=== PATIENT | female | born 1955 | race Caucasian/White ===

== ENCOUNTER 2018-06-20 09:45 | Observation (INO) ==
[2018-06-20] MEDS ORDERED: *HR* LORazepam 2 MG/ML VIAL IVP ONE (09:51)
[2018-06-20] MEDS ORDERED: levETIRAcetam 1,000 MG in 0.9 % Sodium Chloride 100 ML IVPB ONE (09:51)
[2018-06-20] MEDS ORDERED: Dexamethasone 4 MG/ML VIAL IVP ONE (09:51)
--- NOTE | 2018-06-20 09:58 | Emergency Department Note ---
Disposition Clinical Impression: Focal seizure, Status epilepticus, Glioblastoma Disposition: Admitted As Inpatient Condition: Serious General Adult HPI - General Stated complaint: Poss Seizure Time Seen by Provider: 06/20/18 09:48 - Related Data Home Medications Medication Instructions Recorded Confirmed Atenolol [Tenormin] 50 mg PO DAILY 08/03/17 06/01/18 levETIRAcetam [Roweepra] 1,500 mg PO BID 10/16/17 06/20/18 RX: Lisinopril [Zestril] 10 mg PO DAILY 02/04/18 06/01/18 Citalopram [CeleXA] 40 mg PO DAILY 04/12/18 06/01/18 Xarelto 20 mg PO DAILY 04/18/18 06/01/18 L. Acidophilus/Pectin, [place] 1 each PO TID 06/01/18 06/01/18 [Acidophilus Capsule] amLODIPine [Norvasc] 7.5 mg PO DAILY 06/01/18 06/01/18 Previous Rx's Medication Instructions Recorded Omeprazole [PriLOSEC] 20 mg PO BID #60 cap 10/16/17 Walker - Rollator [ROLLATOR] 1 each .ROUTE AD #1 each 12/21/17 RX: Handicap Placard 1 each .ROUTE AD #1 each 12/24/17 RX: Supplies [SUPPLIES] 1 each .ROUTE DAILY #1 each 03/19/18 Acetaminophen/Butalbital/Caffe 1 each PO DAILY PRN #10 tablet 05/27/18 [Fioricet] RX: Dexamethasone [Decadron] 4 mg PO DAILY #30 tab 06/07/18 ALPRAZolam [Xanax 0.5 MG Tablet] 0.5 mg PO TID PRN 30 Days #90 06/19/18 tablet Allergies Allergy/AdvReac Type Severity Reaction Status Date / Time adhesive tape Allergy Rash Verified 06/01/18 16:49 atorvastatin [From Lipitor] AdvReac Cramping Verified 06/01/18 16:49 of the Muscles Past Medical History - Past Medical History Medical history: Reports: cancer, DVT, GERD, hyperlipidemia, hypertension, seizures Psychiatric history: Reports: anxiety, depression - Social History Smoking Status: Never smoker Smokeless Tobacco Status: No Alcohol use: Reports: none Drug use: Reports: none Course Vital Signs Temperature 97.7 F 06/20/18 10:17 Pulse Rate 53 06/20/18 10:17 Respiratory Rate 16 06/20/18 10:17 Blood Pressure 110/85 06/20/18 10:17 O2 Sat by Pulse Oximetry 96 06/20/18 10:17 Temperature 98.5 F 06/20/18 16:51 Pulse Rate 66 06/20/18 16:51 Respiratory Rate 18 06/20/18 16:51 Blood Pressure 111/77 06/20/18 16:51 O2 Sat by Pulse Oximetry 92 06/20/18 16:51 Oxygen Delivery Oxygen Delivery Room Air Medical Decision Making - Lab Data Result diagrams: 06/20/18 12:42 06/20/18 12:42 Lab Results 06/20/18 06/20/18 Range/Units 12:42 12:42 WBC 5.2 (4.3-11.1) K/mcL RBC 4.27 (3.82-4.97) M/mcL Hgb 12.5 (11.5-15.4) g/dL Hct 38.2 (35.3-44.9) % MCV 89.5 (83.0-100.0) fL MCH 29.3 (28.0-33.3) pg MCHC 32.7 (31.6-35.5) g/dL RDW 15.8 H (11.5-14.5) % Plt Count 239 (140-400) K/mcL MPV 9.9 (9.4-12.4) fL Immature Gran % 0.8 (0-4) % Seg Neutrophils % 45.8 % Lymphocytes % 42.2 % Monocytes % 9.6 % Eosinophils % 1.0 % Basophils % 0.6 % Neutrophils # 2.4 (1.6-8.9) K/mcL Lymphocytes # 2.2 (0.6-4.6) K/mcL Monocytes # 0.5 (0.0-1.3) K/mcL Eosinophils # 0.1 (0.0-0.6) K/mcL Basophils # 0.0 (0.0-0.2) K/mcL Nucleated RBCs/100 WBC 0.6 H (0) /100 WBC Sodium 139 (136-145) mEq/L Potassium 3.8 (3.5-5.1) mEq/L Chloride 104 (98-107) mEq/L Carbon Dioxide 22 L (23-29) mEq/L BUN 15 (8-23) mg/dL Creatinine 0.74 (0.60-1.20) mg/dL Est GFR ( Amer) > 60 (> 60) Est GFR (Non-Af Amer) > 60 (> 60) BUN/Creatinine Ratio 20 (6-26) Glucose 116 H (70-105) mg/dL Calculated Osmolality 290 (280-300) Calcium 9.0 (8.6-10.3) mg/dL Magnesium 2.1 (1.6-2.6) mg/dL Total Bilirubin 0.4 (0.3-1.0) mg/dL AST 44 H (13-39) Units/L ALT 128 H (7-52) Units/L Alkaline Phosphatase 60 (34-104) Units/L Serum Total Protein 5.9 L (6.4-8.9) g/dL Albumin 3.6 (3.5-5.7) g/dL Globulin 2.3 L (2.4-3.5) g/dL Albumin/Globulin Ratio 1.6 (1.1-2.2) Critical Care Time Critical Care Time: Yes Total Critical Care Time: 30 Attestation: The high probability of a clinically significant, sudden or life threatening deterioration of the [] system(s) required my full and direct attention, intervention and personal management. The aggregate critical care time was [] minutes. This time is in addition to time spent performing reported procedures but includes the following: [] Data Review and interpretation [] Patient assessment and monitoring of vital signs [] Documentation [] Medication orders and management Attestation Statement - Attestation Attestation: I examined this patient and my medical decision-making was reviewed with the Resident Physician. I agree with the documented findings, disposition and treatment plan as described except to the extent set forth below. [id number] time provided Patient arrives by EMS from home. She is having an active partial seizure at the time of arrival. She has a known history of glioblastoma multi-forming and previous seizures. She takes Keppra.
--- NOTE | 2018-06-20 10:18 | Emergency Department Note ---
Disposition Clinical Impression: Focal seizure, Status epilepticus, Glioblastoma Disposition: Admitted As Inpatient Condition: Serious Time of Disposition: 14:43 General Adult HPI - General Stated complaint: Poss Seizure Time Seen by Provider: 06/20/18 09:48 Source: family, EMS Mode of arrival: EMS Limitations: altered mental status Nursing Notes Reviewed: Yes Vital Signs Reviewed: Yes - History of Present Illness HPI Narrative: 63 yo female with past medical history of brain cancer and seizures presents via EMS from home with the complaint of a possible seizure. The patient's checked on her this morning at 6 AM and the patient was at her baseline. When he went to give her her medications at 9 he noticed that she was in a postictal state. Her normal postictal state as right-sided weakness with slurred speech. The seizure was not witnessed. She has not received her morning medications for seizures. She has not been recently sick but she just started Lovenox for pulmonary embolism approximately 2 weeks ago. She sees physicians at [facility] for her cancer and neurology. at bedside confirms EMS story and cannot describe her typical seizures as he "has never actually seen one". - Related Data Home Medications Medication Instructions Recorded Confirmed Atenolol [Tenormin] 50 mg PO DAILY 08/03/17 06/01/18 levETIRAcetam [Roweepra] 1,500 mg PO BID 10/16/17 06/01/18 Lisinopril [Zestril] 10 mg PO DAILY 02/04/18 06/01/18 Citalopram [CeleXA] 40 mg PO DAILY 04/12/18 06/01/18 Xarelto 20 mg PO DAILY 04/18/18 06/01/18 L. Acidophilus/Pectin, [place] 1 each PO TID 06/01/18 06/01/18 [Acidophilus Capsule] amLODIPine [Norvasc] 7.5 mg PO DAILY 06/01/18 06/01/18 Previous Rx's Medication Instructions Recorded Omeprazole [PriLOSEC] 20 mg PO BID #60 cap 10/16/17 Walker - Rollator [ROLLATOR] 1 each .ROUTE AD #1 each 12/21/17 Handicap Placard 1 each .ROUTE AD #1 each 12/24/17 Supplies [SUPPLIES] 1 each .ROUTE DAILY #1 each 03/19/18 Acetaminophen/Butalbital/Caffe 1 each PO DAILY PRN #10 tablet 05/27/18 [Fioricet] Dexamethasone [Decadron] 4 mg PO DAILY #30 tab 06/07/18 ALPRAZolam [Xanax 0.5 MG Tablet] 0.5 mg PO TID PRN 30 Days #90 06/19/18 tablet Allergies Allergy/AdvReac Type Severity Reaction Status Date / Time adhesive tape Allergy Rash Verified 06/01/18 16:49 atorvastatin [From Lipitor] AdvReac Cramping Verified 06/01/18 16:49 of the Muscles Limitations: ROS unobtainable due to patients medical condition Past Medical History - Past Medical History Medical history: Reports: cancer, DVT, GERD, hyperlipidemia, hypertension, seizures Psychiatric history: Reports: anxiety, depression - Social History Smoking Status: Never smoker Smokeless Tobacco Status: No Alcohol use: Reports: none Drug use: Reports: none Physical Exam Upon arrival via EMS patient seen and have right-sided facial twitching. She is able to follow some commands, including squeezing her left hand raising her left arm and both legs. She is unable to squeeze her right hand or move her right arm. She cannot speak and what she mumbles is unintelligible. She follows peo ple around the room and can answer yes no questions by nodding. Aside from slurred speech and right arm, gross neurologic exam is intact. - General Limitations: altered mental status General appearance: alert - Head Head exam: atraumatic, normocephalic - Eye Eye exam: Present: normal appearance, PERRL, EOMI - ENT ENT exam: normal exam, mucous membranes moist - Neck Neck exam: Present: normal inspection. Absent: tenderness, lymphadenopathy - Chest Chest inspection: Present: normal inspection, symmetric chest wall rise. Absent: tenderness, rash - Respiratory Respiratory exam: Present: normal lung sounds bilaterally - Cardiovascular Cardiovascular exam: Present: regular rate, normal rhythm - Abdominal Exam Abdominal exam: Present: soft, Non-Tender. Absent: distention, guarding, rebound, rigidity - Extremities Exam Extremities exam: Present: normal inspection. Absent: tenderness, pedal edema - Neurological Exam Neurological exam: Present: alert, motor sensory deficit - Skin Skin exam: Present: warm, dry, intact Course Vital Signs Temperature 97.7 F 06/20/18 10:17 Pulse Rate 53 06/20/18 10:17 Respiratory Rate 16 06/20/18 10:17 Blood Pressure 110/85 06/20/18 10:17 O2 Sat by Pulse Oximetry 96 06/20/18 10:17 Temperature 97.7 F 06/20/18 10:17 Pulse Rate 55 06/20/18 11:53 Respiratory Rate 16 06/20/18 11:53 Blood Pressure 102/68 06/20/18 11:53 O2 Sat by Pulse Oximetry 94 06/20/18 11:53 Oxygen Delivery Oxygen Delivery Room Air Medical Decision Making - MDM Narrative Medical decision making narrative: This patient presents from home with postictal state and possible recurrence of focal seizures. She has not had her morning medications and appears to still be seizing but returning to baseline we will medicate her as though she is status epilepticus. 1 g Keppra, 1 mg Ativan, 10 mg Decadron has been ordered for the patient. We will also do a CT scan of her head as she has recently started Lovenox for pulmonary embolism to determine if she has any ischemic or hemorrhagic stroke like activity. 1145 - patient has still not gotten an IV line but continues to have focal facial seizures and has not returned to baseline. Nursing staff will attempt align one more time and if it cannot be obtained we will give the patient intramuscular Ativan to try to abort her seizures. Lab work has not been drawn yet. CT scan of the head just shows postsurgical changes without acute bleed or infarct. 1240 - patient line was obtained at noon. Her medications were administered and patient has stopped seizing at this point. Lab work is just now being drawn. 1440 - lab work returned normal. The patient for neurosurgery at was placed. Patient's states that he would rather not transfer her to [facility] she would prefer a palliative care consult. He does not want the patient to be told that she may be placed on hospice as he is afraid this would upset her. At this time he would prefer to not do aggressive treatments on the patient. The patient has not seized since medication administration earlier. She has been admitted to the hospital at this time. - Medical Records Medical records reviewed: Yes I reviewed the patient's medical records. - Lab Data Lab results reviewed: Yes I reviewed the patient's lab results. Result diagrams: 06/20/18 12:42 06/20/18 12:42 Lab Results 06/20/18 06/20/18 Range/Units 12:42 12:42 WBC 5.2 (4.3-11.1) K/mcL RBC 4.27 (3.82-4.97) M/mcL Hgb 12.5 (11.5-15.4) g/dL Hct 38.2 (35.3-44.9) % MCV 89.5 (83.0-100.0) fL MCH 29.3 (28.0-33.3) pg MCHC 32.7 (31.6-35.5) g/dL RDW 15.8 H (11.5-14.5) % Plt Count 239 (140-400) K/mcL MPV 9.9 (9.4-12.4) fL Immature Gran % 0.8 (0-4) % Seg Neutrophils % 45.8 % Lymphocytes % 42.2 % Monocytes % 9.6 % Eosinophils % 1.0 % Basophils % 0.6 % Neutrophils # 2.4 (1.6-8.9) K/mcL Lymphocytes # 2.2 (0.6-4.6) K/mcL Monocytes # 0.5 (0.0-1.3) K/mcL Eosinophils # 0.1 (0.0-0.6) K/mcL Basophils # 0.0 (0.0-0.2) K/mcL Nucleated RBCs/100 WBC 0.6 H (0) /100 WBC Sodium 139 (136-145) mEq/L Potassium 3.8 (3.5-5.1) mEq/L Chloride 104 (98-107) mEq/L Carbon Dioxide 22 L (23-29) mEq/L BUN 15 (8-23) mg/dL Creatinine 0.74 (0.60-1.20) mg/dL Est GFR ( Amer) > 60 (> 60) Est GFR (Non-Af Amer) > 60 (> 60) BUN/Creatinine Ratio 20 (6-26) Glucose 116 H (70-105) mg/dL Calculated Osmolality 290 (280-300) Calcium 9.0 (8.6-10.3) mg/dL Magnesium 2.1 (1.6-2.6) mg/dL Total Bilirubin 0.4 (0.3-1.0) mg/dL AST 44 H (13-39) Units/L ALT 128 H (7-52) Units/L Alkaline Phosphatase 60 (34-104) Units/L Serum Total Protein 5.9 L (6.4-8.9) g/dL Albumin 3.6 (3.5-5.7) g/dL Globulin 2.3 L (2.4-3.5) g/dL Albumin/Globulin Ratio 1.6 (1.1-2.2) - Radiology Data Radiology results reviewed: Yes I reviewed the patient's radiology results.
[2018-06-20 13:01] LABS: Basophils % 0.6 %; Eosinophils # 0.1 K/mcL (0.0-0.6); Hematocrit 38.2 % (35.3-44.9); Hemoglobin 12.5 g/dL (11.5-15.4); Immature Granulocytes % 0.8 % (0-4); Lymphocytes # 2.2 K/mcL (0.6-4.6); Lymphocytes % 42.2 %; Mean Corpuscular HGB Conc 32.7 g/dL (31.6-35.5); Mean Corpuscular Hemoglobin 29.3 pg (28.0-33.3); Mean Corpuscular Volume 89.5 fL (83.0-100.0); Mean Platelet Volume 9.9 fL (9.4-12.4); Monocytes # 0.5 K/mcL (0.0-1.3); Monocytes % 9.6 %; Neutrophils # 2.4 K/mcL (1.6-8.9); Nucleated Red Blood Cells 0.6 /100 WBC (0); Platelet Count 239 K/mcL (140-400); Red Blood Count 4.27 M/mcL (3.82-4.97); Red Cell Distribution Width 15.8 % (11.5-14.5); Segmented Neutrophils % 45.8 %
[2018-06-20 13:36] LABS: Alanine Aminotransferase 128 Units/L (7-52); Albumin 3.6 g/dL (3.5-5.7); Albumin/Globulin Ratio 1.6 (1.1-2.2); Alkaline Phosphatase 60 Units/L (34-104); Aspartate Amino Transferase 44 Units/L (13-39); BUN/Creatinine Ratio 20 (6-26); Bilirubin,Total 0.4 mg/dL (0.3-1.0); Blood Urea Nitrogen 15 mg/dL (8-23); Carbon Dioxide 22 mEq/L (23-29); Chloride 104 mEq/L (98-107); Globulin 2.3 g/dL (2.4-3.5); Glucose 116 mg/dL (70-105); Magnesium 2.1 mg/dL (1.6-2.6); Osmolality,Calculated 290 (280-300); Potassium 3.8 mEq/L (3.5-5.1); Sodium 139 mEq/L (136-145); Total Protein 5.9 g/dL (6.4-8.9); eGFR For Non-African Americans > 60 (> 60)
[2018-06-20] MEDS ORDERED: *HR* Morphine 2 MG/ML SYRINGE IVP ONE (15:24)
[2018-06-20] MEDS ORDERED: Acetaminophen/Butalbital/CaffeineTABLET PO PRN (15:29)
[2018-06-20] MEDS ORDERED: ALPRAZolam 0.5 MG TABLET PO PRN (15:29)
[2018-06-20] MEDS ORDERED: Ondansetron 4 MG/2 ML VIAL IVP PRN (15:34)
[2018-06-20] MEDS ORDERED: *HR* OxyCODONE Immed Rel 5 MG TABLET PO PRN (15:35)
[2018-06-20] MEDS ORDERED: tiZANidine 4 MG TABLET PO PRN (15:37)
--- NOTE | 2018-06-20 15:41 | Internal Med History&Physical ---
Date of Encounter: 06/20/18 Time of Encounter: 14:50 Internal Medicine - H&P: HPI Chief complaint: Seizures Admitted From: Emergency Dept History of present illness: Ms. 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 The patient's checked on her this morning at 6 AM and the patient was at her baseline. When he went to give her her medications at 9 he noticed that she was in a postictal state. Her normal postictal state as right-sided weakness with slurred speech. The seizure was not witnessed. She has not received her morning medications for seizures. She has not been recently sick but she just started Lovenox for pulmonary embolism approximately 2 weeks ago. She is not taking Xarelto anymore. She sees physicians at [facility] for her cancer and neurology. Currently patient is postictal. Her sts she takes a day to recover slowly. She is alert and c/o headache. Pt was givn a dose of 1000mg of Kepra, 1 mg of Ativan IV and Decadron 10 mg IV at the ER. Meds have been entered after reviewing list current list from [facility]. Past Med Surg Social Fam HX - Past Medical History Medical history: cancer, DVT, GERD, hyperlipidemia, hypertension, seizures Additional medical history: Brain CA, DVT RLL Psychiatric history: anxiety, depression - Past Surgical History Additional surgical history: brain tumor removal. aport - Social History Smoking Status: Never smoker Smokeless Tobacco Status: No Alcohol use: none Drug use: none - Family History Mother Living Status: Hx Family Cardiac Disorders: No Hx Family Respiratory Disorders: No Hx Family Cancer: Yes Hx Family GI Disorders: No Hx Family Endocrine Disorder: Yes (DM) Hx Family Neuromuscular Disorders: No Hx Family Neurologic Disorders: No Hx Family HEENT Disorders: No Hx Family Autoimmune Disorders: No Father Living Status: Still Living Hx Family Cardiac Disorders: No Hx Family Respiratory Disorders: No Hx Family Cancer: No Hx Family GI Disorders: No Hx Family Endocrine Disorder: No Hx Family Neuromuscular Disorders: No Hx Family Neurologic Disorders: No Hx Family HEENT Disorders: No Hx Family Autoimmune Disorders: No Daughter Age at : 31 Cause of : Brain Cancer Internal Medicine - H&P: Meds Atenolol [Tenormin] 50 mg PO DAILY 08/03/17 [History] Omeprazole [PriLOSEC] 20 mg PO BID #60 cap 10/16/17 [Rx] levETIRAcetam [Roweepra] 1,500 mg PO BID 10/16/17 [History] Walker - Rollator [ROLLATOR] 1 each .ROUTE AD #1 each 12/21/17 [Rx] Handicap Placard 1 each .ROUTE AD #1 each 12/24/17 [Rx] Lisinopril [Zestril] 10 mg PO DAILY 02/04/18 [History] Supplies [SUPPLIES] 1 each .ROUTE DAILY #1 each 03/19/18 [Rx] Citalopram [CeleXA] 40 mg PO DAILY 04/12/18 [History] Xarelto 20 mg PO DAILY 04/18/18 [History] Acetaminophen/Butalbital/Caffe [Fioricet] 1 each PO DAILY PRN #10 tablet 05/27/18 [Rx] L. Acidophilus/Pectin, [place] [Acidophilus Capsule] 1 each PO TID 06/01/18 [Hi story] amLODIPine [Norvasc] 7.5 mg PO DAILY 06/01/18 [History] Dexamethasone [Decadron] 4 mg PO DAILY #30 tab 06/07/18 [Rx] ALPRAZolam [Xanax 0.5 MG Tablet] 0.5 mg PO TID PRN 30 Days #90 tablet 06/19/18 [Rx] Allergy/AdvReac Type Severity Reaction Status Date / Time adhesive tape Allergy Rash Verified 06/01/18 16:49 atorvastatin [From Lipitor] AdvReac Cramping Verified 06/01/18 16:49 of the Muscles All Systems PM: A 10-system review of systems was performed and is negative for pertinent findings except as documented above in the HPI. - Constitutional Vitals: Temp Pulse Resp BP Pulse Ox 97.7 F 67 20 124/75 95 06/20/18 10:17 06/20/18 15:34 06/20/18 15:34 06/20/18 15:34 06/20/18 15:34 General appearance: Present: morbidly obese Exam: Patient is alert but confused given post ictal. Voice is feeble. C/O headache. - Head Head exam: Present: atraumatic, normocephalic - Eye Eye exam: Present: PERRL, conjuntiva pink, sclera anicteric Pupils: Present: PERRL - Neck Neck exam general surgery: Present: supple, trachea midline. Absent: lymphadenopathy - Respiratory Respiratory exam: Present: CTAB. Absent: accessory muscle use, rales, rhonchi, wheezes - Cardiovascular Cardiovascular exam: Present: RRR, +S1, +S2. Absent: diastolic murmur, gallop, rubs, systolic murmur - GI/Abdominal GI/Abdominal exam: Present: normal bowel sounds, soft, no peritoneal signs. Absent: distended, tenderness - Extremities Exam Extremities exam: Present: warm, radial pulses palpable and symmetrical. Absent: calf tenderness, cyanotic, pedal edema - Neurological Exam Neurological exam: Present: CN II-XII intact, speech deficit. Absent: pronater drift, facial droop Additional comments: Pattient is with week voice and cannot make out words as post ictal. The right upper extermity has 3 to 4/5 strenght which is residual from previous per . Pt was able to stand and walk with assistance to commode. - Skin Skin exam: Present: dry, intact Internal Med - H&P Results - Labs CBC & Chem 7: 06/20/18 12:42 06/20/18 12:42 Labs: Short CBC 06/20/18 Range/Units 12:42 WBC 5.2 (4.3-11.1) K/mcL Hgb 12.5 (11.5-15.4) g/dL Hct 38.2 (35.3-44.9) % Plt Count 239 (140-400) K/mcL Neutrophils # 2.4 (1.6-8.9) K/mcL BMP 06/20/18 12:42 Sodium 139 Potassium 3.8 Chloride 104 Carbon Dioxide 22 L BUN 15 Creatinine 0.74 Glucose 116 H Calcium 9.0 Liver Function 06/20/18 Range/Units 12:42 Total Bilirubin 0.4 (0.3-1.0) mg/dL AST 44 H (13-39) Units/L ALT 128 H (7-52) Units/L Alkaline Phosphatase 60 (34-104) Units/L Albumin 3.6 (3.5-5.7) g/dL - Impressions ITS Impressions Head CT 06/20/18 09:59 IMPRESSION: Sequela of prior surgery left temporal lobe with chronic changes in the left cerebral hemisphere unchanged from 2 months earlier. No acute intracranial abnormality seen. D/ / 06/20/2018 11:09:35 Michele Sam MD / Lashell Ernandez Interpreting Provider: Michele Sam MD - Assessment and plan (1) Focal seizure Current Visit: Yes Status: Acute Assessment and plan: This is likely from previous scarring from the Brain Cancer Surgery. Pt was presribed hydroxyzine for a rash. Dr. Huddleston Neurology was paged and consult requested. He has advised increasing the Keppra to 2000 mg BID and will see pt. Seizure precautions. Admit to Obs. (2) Glioblastoma Current Visit: Yes Status: Acute Assessment and plan: This is stable per CT. Disposition to Neuro oncology at [facility]. Pt is not in a condition for Palliative care discussion. Will wait till tomorrow to see if pt is imroved to the point where a Paaliative care consult may be obtained. (3) Hypertension Current Visit: No Status: Acute Assessment and plan: Continue Atenolol and Amlodipine. Cont lisinopril. Monitor BP. Qualifiers: Hypertension type: essential hypertension Qualified Code(s): I10 - Ess ential (primary) hypertension (4) Pulmonary embolism Current Visit: Yes Status: Acute Assessment and plan: Continue Lovenox. This also serves as DVT PPX. GI PPX with PPI. Qualifiers: Qualified Code(s): I26.99 - Other pulmonary embolism without acute cor pulmonale - Time Spent With Patient Total time spent is greater than 50% in coordination of care (as documented) at patient's floor/unit and/or counseling patient: Greater than 35 minutes
--- NOTE | 2018-06-20 16:28 | Neurology - Consult Note ---
<Berlin Gordon - Last Filed: 06/20/18 16:05> Date of Encounter: 06/20/18 Time of Encounter: 16:06 Assessment and Plan (1) Focal seizure Current Visit: Yes Status: Acute Neurology has been consulted due to focal seizure. Patient presents with altered mental status and what appears to be a postictal state S/P seizure. Per my exam she is lethargic and alert to self only and confused. She has right sided focal weakness and dysarthria. 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 She has a history of glioblastoma multiforme S/P resection 06/2017. Since 09/2017 she has had 4 seizures and is currently taking Keppra 1500 mg twice a day; she did not receive her a.m. dose today. She did receive 1000 mg IV dose in the ED. I suspect that scarring S/P resection is what has been causing her seizure activity. Plan: -EEG -Daily ASA 81 mg -Increase Keppra to 2000 mg twice a day -Request medical records from [facility] -Seizure precautions -Continuous telemetry - (2) Glioblastoma Current Visit: Yes Status: Acute Dx in 2017; s/p resection 06/2017. Has family hx with both Mother and Daughter. Follows with [facility] and follows with Dr. Vora Patient will continue f/u with [facility] (3) Family history of cancer Current Visit: No Status: Acute (4) Status epilepticus Current Visit: Yes Status: Acute History of Present Illness Chief complaint: seizures HPI: Ms. Soria is a 63-year-old female with a PMH of, HTN, HLD, seizures, recent DVT, PE and glioblastoma multiform S/P resection 06/2017. Since 09/2017 the patient has been having seizures. She presents to [facility] today with concern for seizures, as such Neurology has been consulted for further evaluation. Her husb and is at the bedside and reports that around 6 AM this morning the patient appeared to be at her baseline status. However, when he went back to check on her later in the morning at approximately around 9 AM he noticed that she was altered, lethargic and had right sided weakness, headache and slurred speech. She did not receive her seizure medications this morning. He does note that she has had multiple seizures with the same presentation in the past but never had any confirmed seizure activity on EEG. Also, she has had previous stroke workup at [facility] which was found to be negative. Per my assessment this evening she is lethargic but opens her eyes to voice and is able to participate in exam. She does have right-sided weakness and some mild dysarthria. She is alert but confused and appears to be postictal. She denies any visual changes, hearing loss, tinnitus, dysphagia, facial droop, chest pain or shortness of breath. CT of the head was completed in the ED and per my review I did not identify any acute abnormalities; sequelae of postsurgical left temporal lobe chronic changes. Past Med Surg Social Fam HX - Past Medical History Medical history: cancer, DVT, GERD, hyperlipidemia, hypertension, seizures Additional medical history: Brain CA, DVT RLL Psychiatric history: anxiety, depression - Past Surgical History Additional surgical history: brain tumor removal. aport - Social History Smoking Status: Never smoker Smokeless Tobacco Status: No Alcohol use: none Drug use: none - Family History Mother Living Status: Hx Family Cardiac Disorders: No Hx Family Respiratory Disorders: No Hx Family Cancer: Yes Hx Family GI Disorders: No Hx Family Endocrine Disorder: Yes (DM) Hx Family Neuromuscular Disorders: No Hx Family Neurologic Disorders: No Hx Family HEENT Disorders: No Hx Family Autoimmune Disorders: No Father Living Status: Still Living Hx Family Cardiac Disorders: No Hx Family Respiratory Disorders: No Hx Family Cancer: No Hx Family GI Disorders: No Hx Family Endocrine Disorder: No Hx Family Neuromuscular Disorders: No Hx Family Neurologic Disorders: No Hx Family HEENT Disorders: No Hx Family Autoimmune Disorders: No Daughter Age at : 31 Cause of : Brain Cancer Medications and Allergies Atenolol [Tenormin] 25 mg PO DAILY 08/03/17 [History] Omeprazole [PriLOSEC] 20 mg PO BID #60 cap 10/16/17 [Rx] levETIRAcetam [Roweepra] 1,500 mg PO BID 10/16/17 [History] Lisinopril [Zestril] 10 mg PO DAILY 02/04/18 [History] Citalopram [CeleXA] 20 mg PO DAILY 04/12/18 [History] L. Acidophilus/Pectin, [place] [Acidophilus Capsule] 1 each PO TID 06/01/18 [History] Dexamethasone [Decadron] 4 mg PO DAILY #30 tab 06/07/18 [Rx] ALPRAZolam [Xanax 0.5 MG Tablet] 0.5 mg PO TID PRN 30 Days #90 tablet 06/19/18 [Rx] Enoxaparin [Lovenox] 100 mg SQ Q12HR 06/20/18 [History] Methylphenidate HCl [Ritalin] 5 mg PO 0800,1200 06/20/18 [History] Ondansetron HCl 4 mg PO Q8H PRN 06/20/18 [History] Oxycodone HCl [Roxybond] 5 mg PO Q8H PRN 06/20/18 [History] Prochlorperazine Maleate [Compazine] 10 mg PO Q8HR PRN 06/20/18 [History] Tizanidine HCl [Zanaflex] 2 mg PO Q8H PRN 06/20/18 [History] hydrOXYzine HCl [Hydroxyzine HCl] 50 mg PO TID PRN 06/20/18 [History] Allergy/AdvReac Type Severity Reaction Status Date / Time adhesive tape Allergy Rash Verified 06/20/18 19:02 atorvastatin [From Lipitor] AdvReac Cramping Verified 06/20/18 19:02 of the Muscles All Systems: The remainder of the systems were reviewed and are negative Review of Systems: REVIEW OF SYSTEMS GENERAL: Negative for any nausea, vomiting, fevers, chills - - / + fatigue; reports sleeping 18-20 hours daily in the setting of glioblastoma multiform diagnosis NEUROLOGIC: Negative for any visual changes, facial asymmetry, dysarthria, hemisensory deficits, vertigo, ataxia, tongue biting or loss of bowel or bladder - - / + dysarthria, right sided hemiparesis, confusion, concern for seizures with history of prior seizures PSYCH: - agitation/irritability, anxiety HEENT: Negative for any head trauma, neck trauma, neck stiffness, photophobia, phonophobia, dysphagia CARDIAC: Negative for any chest pain, - -/ + Recent DVT and PE for which she is taking Lovenox weight-based twice a day injections GENITOURINARY: Negative for any dysuria, hematuria, incontinence or loss of bowel or bladder. MUSCULOSKELETAL: - Joint pain, stiffness / + right-sided weakness Physical Examination - Vital Signs Vital Signs: Initial Vital Signs Temp Pulse Resp BP Pulse Ox 97.7 F 53 16 110/85 96 06/20/18 10:17 06/20/18 10:17 06/20/18 10:17 06/20/18 10:17 06/20/18 10:17 - Exam Exam: Examination: General Examination: *CONSTITUTIONAL: Temp 90 7.7F, HR 67, RR 20 and 95% on room air, BP 124/75 *GENERAL APPEARANCE OF PATIENT ill-appearing obese female *EYES: pupils equal, round, reactive to light and accommodation, conjunctiva clear without masses or ulcerations *CARDIOVASCULAR RRR, S1, S2, no mumurs, rubs, or gallops, no peripheral edema, distal temperature normal, dorsalis pedis pulses normal. Musculoskeletal: *GAIT AND STATION lying on back in recumbent position; resting in bed S/P seizure, did not assess gait. *ASSESSMENT OF MUSCLE STRENGTH IN THE UPPER AND LOWER EXTREMITIES bilateral deltoid, bicep, tricep, piler strength, hip flexors ,anterior tibialis, dorsoflexion of the foot 3/5 *MUSCLE TONE IN THE UPPER AND LOWER EXTREMITIES normal. No abnormal movements, fasciculations or atrophy identified. Neurological: *ORIENTATION to person *RECURRENT AND REMOTE MEMORY intact *ATTENTION AND CONCENTRATION lethargic with postictal state S/P suspected seizure however able to follow basic commands *LANGUAGE FUNCTION no significant aphasia, was noted. + Dysarthria persi sts *FUND OF KNOWLEDGE aware of current events, past history, vocabulary *MENTAL altered attention span and concentration with suspected postictal state *CN II optic fundi were normal, no papilledema noted. *CN III,IV, PERRLA extraocular eye movements were full, no nystagmus and no ptosis noted. *CN V shows normal sensation and jaw opens symmetrically. *CN VII shows normal facial movement symmetrically, upper and lower bilaterally. *CN VIII shows no significant hearing loss on examination in the office. *CN IX,,X palate elevated symmetrically and normal gag reflex was noted. *CN XI normal strength in the sternocleidomastoid muscles, symmetrical shoulder shrugging. *CN XII tongue protruded in the midline, with normal strength and movement. *SENSORY EXAMINATION pinprick sensation intact, and light touch(vibration sense). *REFLEXES: deep tendon reflexes were normal and symmetrical , grade 1/4 diffusely, no pathological reflexes were noted. *CEREBELLAR TESTING heel/knee/champion *PAIN LEVEL 0/10 Results - Laboratory Findings CBC and BMP: 06/20/18 12:42 06/20/18 12:42 Abnormal lab findings: Abnormal lab results RDW 15.8 % (11.5-14.5) H 06/20/18 12:42 Nucleated RBCs/100 WBC 0.6 /100 WBC (0) H 06/20/18 12:42 Carbon Dioxide 22 mEq/L (23-29) L 06/20/18 12:42 Glucose 116 mg/dL (70-105) H 06/20/18 12:42 AST 44 Units/L (13-39) H 06/20/18 12:42 ALT 128 Units/L (7-52) H 06/20/18 12:42 Serum Total Protein 5.9 g/dL (6.4-8.9) L 06/20/18 12:42 Globulin 2.3 g/dL (2.4-3.5) L 06/20/18 12:42 - Diagnostic Findings EKG: report reviewed, image reviewed Additional findings: I have personally reviewed CT imaging of head and did not find any acute intracr anial abnormalities. There are chronic changes in the left cerebral hemisphere and postsurgical changes the left temporal lobe. Consult Discharge Plan - Plan Referrals: Jaime Corral MD [Primary Care Provider] - <Soraya Huddleston I - Last Filed: 06/21/18 10:02> Date of Encounter: 06/20/18 Assessment and Plan (1) Glioblastoma Current Visit: Yes Status: Acute (2) Family history of cancer Current Visit: No Status: Acute (3) Focal seizure Current Visit: Yes Status: Acute Pt was seen and examined, my medical decision was reviewed with emergency medical tech. I agree with the documented findings, disposition and treatment plan, as described except to the extent set forth below. Patient known to me from previous office visit with the GBM status post resection in June 2017, as well as chemotherapy and seizures admitted with breakthrough seizures had multiple seizures this morning. She has received extra dose of Keppra in the emergency room Now slightly postictal but coming back to her baseline With her seizures even previously she did get weakness of the right upper extr emity and some dysarthria which gradually subside within a day or so. She recently had DVT and PE for which she is on anticoagulation CT scan of the head did not show any acute new abnormality and particularly no evidence of any bleed. Suspect patient may be having Ancelmo paralysis, following these seizures to seems to be mixed simple/complex partial seizures. she seems to be alert awake and oriented no lethargic and drowsy but does not seems to be into status/ She did have an MRI of the brain 2 weeks ago at [facility] as a routine follow-up that did not show any evidence of new recurrence of tumor and she is scheduled to have another MRI in the next few weeks. As clinically she seems to be stable do not think that we need to do any MRI and now. She is already on anticoagulation and a baby aspirin and it would not change any management even if it is a stroke. Which I do not think is the case suspect it is more related to her seizures for her she is received extra dose of Keppra suggested to continue and increase the dose to 2000 mg twice a day. We will get an EEG to make sure there is no interictal abnormalities. We will follow the patient with you she should continue on seizure precautions Soraya Huddleston MD History of Present Illness HPI: Ms. Soria is a 63 year old female All Systems: The remainder of the systems were reviewed and are negative Physical Examination - Vital Signs Vital Signs: Initial Vital Signs Temp Pulse Resp BP Pulse Ox 97.7 F 53 16 110/85 96 06/20/18 10:17 06/20/18 10:17 06/20/18 10:17 06/20/18 10:17 06/20/18 10:17 Results - Laboratory Findings CBC and BMP: 06/21/18 05:17 06/21/18 05:17 Abnormal lab findings: Abnormal lab results RDW 15.5 % (11.5-14.5) H 06/21/18 05:17 Nucleated RBCs/100 WBC 0.8 /100 WBC (0) H 06/21/18 05:17 Glucose 106 mg/dL (70-105) H 06/21/18 05:17 AST 44 Units/L (13-39) H 06/20/18 12:42 ALT 128 Units/L (7-52) H 06/20/18 12:42 Serum Total Protein 5.9 g/dL (6.4-8.9) L 06/20/18 12:42 Globulin 2.3 g/dL (2.4-3.5) L 06/20/18 12:42
[2018-06-20] MEDS ORDERED: Gadolinium Contrast Agent (WT Based) IV PRN (16:39)
[2018-06-20] MEDS: *HR* Enoxaparin 100 MG/ML SYRINGE SQ SCH (19:44)
[2018-06-20] MEDS ORDERED: levETIRAcetam 250 MG TABLET PO SCH (21:00)
[2018-06-20] MEDS: Aspirin 81 MG TAB.CHEW PO SCH (21:07)
[2018-06-20] MEDS: Lactobacillus 1 EACH CAP.SPRINK PO SCH (21:07)
[2018-06-20] MEDS ORDERED: levETIRAcetam 250 MG TABLET PO STA (21:43)
[2018-06-21] MEDS: *HR* Enoxaparin 100 MG/ML SYRINGE SQ SCH (05:30)
[2018-06-21 05:33] LABS: Basophils % 0.3 %; Eosinophils % 0.2 %; Hematocrit 40.3 % (35.3-44.9); Immature Granulocytes % 1.1 % (0-4); Lymphocytes # 2.7 K/mcL (0.6-4.6); Lymphocytes % 41.4 %; Mean Corpuscular HGB Conc 32.3 g/dL (31.6-35.5); Mean Corpuscular Hemoglobin 29.2 pg (28.0-33.3); Mean Corpuscular Volume 90.6 fL (83.0-100.0); Mean Platelet Volume 10.1 fL (9.4-12.4); Monocytes # 0.5 K/mcL (0.0-1.3); Monocytes % 8.1 %; Neutrophils # 3.1 K/mcL (1.6-8.9); Nucleated Red Blood Cells 0.8 /100 WBC (0); Platelet Count 248 K/mcL (140-400); Red Blood Count 4.45 M/mcL (3.82-4.97); Red Cell Distribution Width 15.5 % (11.5-14.5); Segmented Neutrophils % 48.9 %
[2018-06-21 05:52] LABS: BUN/Creatinine Ratio 17 (6-26); Blood Urea Nitrogen 12 mg/dL (8-23); Calcium 8.8 mg/dL (8.6-10.3); Carbon Dioxide 24 mEq/L (23-29); Chloride 104 mEq/L (98-107); Glucose 106 mg/dL (70-105); Osmolality,Calculated 286 (280-300); Potassium 3.7 mEq/L (3.5-5.1); Sodium 138 mEq/L (136-145); eGFR For Non-African Americans > 60 (> 60)
[2018-06-21] MEDS ORDERED: Acetaminophen/Butalbital/CaffeineTABLET PO PRN (07:23)
[2018-06-21] MEDS: Methylphenidate HCl 5 MG TABLET PO SCH ×2 (08:32→11:31)
[2018-06-21] MEDS: Aspirin 81 MG TAB.CHEW PO SCH (08:33)
[2018-06-21] MEDS: Lactobacillus 1 EACH CAP.SPRINK PO SCH ×2 (08:33→16:13)
[2018-06-21] MEDS ORDERED: levETIRAcetam 250 MG TABLET PO SCH (09:00)
--- NOTE | 2018-06-21 09:14 | Neurology Progress Note ---
<Berlin Gordon J - Last Filed: 06/21/18 09:37> Date of Encounter: 06/21/18 Time of Encounter: 09:14 Assessment and Plan (1) Focal seizure Current Visit: Yes Status: Acute Neurology has been consulted due to focal seizure. Patient presented with altered mental status, right-sided weakness, dysarthria, and lethargy She has been having recurrent seizures since 09/2017. She presented yesterday with a postictal state and with Ancelmo's paralysis. Keppra dose has been increased to 2000 mg twice a day. I explained to her son and that she is having seizures due to scarring following the 07/01 tumor resection I strongly encourage follow-up with neuro/oncology [facility] Plan: -EEG - - pending -Daily ASA 81 mg -Request medical records from [facility] -Seizure precautions -Continuous telemetry - (2) Glioblastoma Current Visit: Yes Status: Acute (3) Family history of cancer Current Visit: No Status: Acute (4) Status epilepticus Current Visit: Yes Status: Acute Subjective Principal diagnosis: Focal seizures Interval history: Ms. Soria is a 63-year-old female with a PMH of, HTN, HLD, seizures, recent DVT, PE and glioblastoma multiform S/P resection 06/2017. She has been having recurrent focal seizures since 06/2017 resection. Neurology was consulted for evaluation of seizures. She presented yesterday to [facility] with seizures, slurred speech, right arm and leg weakness, confusion and lethargy. The patient was seen and examined at bedside today. There is no acute changes to the patient's condition overnight. Per my valuation this morning she appears to be more alert and is oriented 3. The right-sided weakness is improving she does not have any notable dysarthria. I discussed with the patient and her that seizures are most likely caused by scar tissue S/P resection of tumor. Furthermore, I discussed the increase in dose of Keppra and the need for close follow-up with her neuro/oncology team at [facility]. The patient and deny any further questions or concerns at this time. Objective - Constitutional Vitals: Temp Pulse Resp BP Pulse Ox 97.8 F 66 16 143/82 92 06/21/18 07:06 06/21/18 07:06 06/21/18 07:06 06/21/18 07:06 06/21/18 07:06 Exam: Examination: General Examination: *CONSTITUTIONAL: Temp 90 7.8F, HR 66, RR 16 and 92% on RA, BP 143/82 *GENERAL APPEARANCE OF PATIENT ill-appearing obese female *EYES: pupils equal, round, reactive to light and accommodation, conjunctiva clear without masses or ulcerations, fundi normal. *CARDIOVASCULAR RRR, S1, S2, no mumurs, rubs, or gallops, no peripheral edema, distal temperature normal, dorsalis pedis pulses normal. Musculoskeletal: *GAIT AND STATION no obvious truncal ataxia, resting in bed S/P seizure *ASSESSMENT OF MUSCLE STRENGTH IN THE UPPER AND LOWER EXTREMITIES bilateral deltoid, bicep, tricep, director of fundraising strength, hip flexors ,anterior tibialis, dorsoflexion of the foot /5 *MUSCLE TONE IN THE UPPER AND LOWER EXTREMITIES normal. No abnormal movements, fasciculations or atrophy identified. Neurological: *ORIENTATION to person, place, situation *RECURRENT AND REMOTE MEMORY intact *ATTENTION AND CONCENTRATION are normal *LANGUAGE FUNCTION no significant aphasia or dysarthia was noted. *FUND OF KNOWLEDGE aware of current events, past history, vocabulary *MENTAL attention span and concentration normal, follows commands and participates in exam; this is an improvement from yesterday. *CN II optic fundi were normal, no papilledema noted. *CN III,IV, PERRLA extraocular eye movements were full, no nystagmus and no ptosis noted. *CN V shows normal sensation and jaw opens symmetrically. *CN VII shows normal facial movement symmetrically, upper and lower bilaterally. *CN VIII shows no significant hearing loss on examination in the office. *CN IX,,X palate elevated symmetrically and normal gag reflex was noted. *CN XI normal strength in the sternocleidomastoid muscles, symmetrical shoulder shrugging. *CN XII tongue protruded in the midline, with normal strength and movement. *SENSORY EXAMINATION pinprick sensation intact, and light touch(vibration sense). *REFLEXES: deep tendon reflexes were normal and symmetrical , grade 1/4 diffusely, no pathological reflexes were noted. *PAIN LEVEL 0/10 - VTE Reasons for not Prescribing Prophylaxis: Not indicated-Anticoagulated or INR therapeutic Results - Laboratory Findings CBC and BMP: 06/21/18 05:17 06/21/18 05:17 Abnormal lab findings: Abnormal lab results RDW 15.5 % (11.5-14.5) H 06/21/18 05:17 Nucleated RBCs/100 WBC 0.8 /100 WBC (0) H 06/21/18 05:17 Glucose 106 mg/dL (70-105) H 06/21/18 05:17 AST 44 Units/L (13-39) H 06/20/18 12:42 ALT 128 Units/L (7-52) H 06/20/18 12:42 Serum Total Protein 5.9 g/dL (6.4-8.9) L 06/20/18 12:42 Globulin 2.3 g/dL (2.4-3.5) L 06/20/18 12:42 Consult Discharge Plan - Plan Referrals: Jaime Corral MD [Primary Care Provider] - <Soraya Huddleston I - Last Filed: 06/21/18 10:04> Date of Encounter: 06/21/18 Assessment and Plan (1) Glioblastoma Current Visit: Yes Status: Acute (2) Family history of cancer Current Visit: No Status: Acute (3) Focal seizure Current Visit: Yes Status: Acute Pt was seen and examined, my medical decision was reviewed with the interpreter, I agree with the documented findings, disposition and treatment plan, as described except to the extent set forth below. Patient clinically stable no further seizures more alert and awake today able to have conversation following commands no significant weakness. No evidence of a stroke on exam Suggest to continue on the current dose of Keppra which is 2000 mg twice a day We will review the EEG for any interictal abnormalities Patient remained stable she be okay to discharge from neurology standpoint with follow-up with her oncologist at [facility] Won Huddleston MD Objective - Constitutional Vitals: Temp Pulse Resp BP Pulse Ox 97.8 F 66 16 143/82 92 06/21/18 07:06 06/21/18 07:06 06/21/18 07:06 06/21/18 07:06 06/21/18 07:06 Results - Laboratory Findings CBC and BMP: 06/21/18 05:17 06/21/18 05:17 Abnormal lab findings: Abnormal lab results RDW 15.5 % (11.5-14.5) H 06/21/18 05:17 Nucleated RBCs/100 WBC 0.8 /100 WBC (0) H 06/21/18 05:17 Glucose 106 mg/dL (70-105) H 06/21/18 05:17 AST 44 Units/L (13-39) H 06/20/18 12:42 ALT 128 Units/L (7-52) H 06/20/18 12:42 Serum Total Protein 5.9 g/dL (6.4-8.9) L 06/20/18 12:42 Globulin 2.3 g/dL (2.4-3.5) L 06/20/18 12:42
--- NOTE | 2018-06-21 13:42 | Palliative - Consult Note ---
Date of Encounter: 06/21/18 Time of Encounter: 13:35 - Assessment and Plan (1) Focal seizure Current Visit: Yes Status: Acute Assessment and plan: Neurology following, Kegiuseppera has been increased and they recommend f/u with Neuro/onc at [facility]. (2) Glioblastoma Current Visit: Yes Status: Acute Assessment and plan: Dr. Schmitt follows patient as well as Neuro/Onc at [facility]. Appears last MRI was stable. (3) Anxiety Current Visit: Yes Status: Acute (4) Goals of care, counseling/discussion Current Visit: Yes Status: Acute Assessment and plan: Met with patient and Maximo at bedside. Patient is tearful and anxious upon me introducing myself. told patient "You do not have to talk with her if you do not want to". I explained our role as Palliative care team, and that I did not represent only hospice care. They acknowledged understanding and did agree for my visit. Patient does have some expressive aphasia, points at to speak for her at times. He states that they desire to continue seeing [facility] and will discuss with that physician when they should transition into hospice. States that they are currently taking a break from treatment, as her MRI has been stable. Advanced directives are already in place, (POA/Living will). Discussed code status, and patient does not want heroic measures or intubation should her condition worsen. They do desire aggressive care up to that point. Code status changed to DNR/DNI and state form completed and signed by , CRESENCIO. Copies provided to him and placed on medical record. She is hoping to be discharged home later today. thinks she is almost back to baseline, and they have follow up already scheduled for the [facility]. Patient lost a daughter 4 years ago, also had a glioblastoma. They have 2 other sons that are in the . By the time I am finishing this note, patient has been discharged to go home. Palliative-CN HPI - Data of Consult Consult date: 06/21/18 Requesting Physician: Clayton Harden MD Primary Care Provider: Jaime Corral MD - Consult Narrative History of present illness: Ms. Soria is a 63 year old female with a history of glioblastoma,diagnosed in 06/2017, who was brought to ER when she was found minimally responsive by her . She has history of seizures since she had resection for the brain tumor, and this was her typical behavior. After admission, neurology was cons ulted for patient and recommended increase of Keppra. She has not had any further seizures since admission yesterday. Patient has expressive aphasia, but , Maximo at bedside states she is back to baseline, and hoping she is discharged home. Other medical history: DVT, GERD, hyperlipidemia, hypertension, seizures, anxiety, depression. Upon my visit, patient is alert and oriented, at bedside. She is hungry and asking for something to eat. Right sided weakness, that st ates is chronic, and worsens with seizures. He states usually back to baseline within a day. She denies any pain or discomfort. Denies dyspnea/nausea. Positive for anxiety. CC: Clayton Harden MD - Time Spent with Patient Time: Total time spent is greater than 50% in coordination of care (as documented) at patient's floor/unit and/or counseling patient: Time with patient: 30 minutes Past Med Surg Social Fam HX - Past Medical History Medical history: cancer, DVT, GERD, hyperlipidemia, hypertension, seizures Additional medical history: Brain CA, DVT RLL Psychiatric history: anxiety, depression - Past Surgical History Additional surgical history: brain tumor removal. aport - Social History Smoking Status: Never smoker Smokeless Tobacco Status: No Alcohol use: none Drug use: none - Family History Mother Living Status: Hx Family Cardiac Disorders: No Hx Family Respiratory Disorders: No Hx Family Cancer: Yes Hx Family GI Disorders: No Hx Family Endocrine Disorder: Yes (DM) Hx Family Neuromuscular Disorders: No Hx Family Neurologic Disorders: No Hx Family HEENT Disorders: No Hx Family Autoimmune Disorders: No Father Living Status: Still Living Hx Family Cardiac Disorders: No Hx Family Respiratory Disorders: No Hx Family Cancer: No Hx Family GI Disorders: No Hx Family Endocrine Disorder: No Hx Family Neuromuscular Disorders: No Hx Family Neurologic Disorders: No Hx Family HEENT Disorders: No Hx Family Autoimmune Disorders: No Daughter Age at : 31 Cause of : Brain Cancer Medications and Allergies Atenolol [Tenormin] 25 mg PO DAILY 08/03/17 [History] Omeprazole [PriLOSEC] 20 mg PO BID #60 cap 10/16/17 [Rx] Lisinopril [Zestril] 10 mg PO DAILY 02/04/18 [History] Citalopram [CeleXA] 20 mg PO DAILY 04/12/18 [History] L. Acidophilus/Pectin, [place] [Acidophilus Capsule] 1 each PO TID 06/01/18 [History] Dexamethasone [Decadron] 4 mg PO DAILY #30 tab 06/07/18 [Rx] ALPRAZolam [Xanax 0.5 MG Tablet] 0.5 mg PO TID PRN 30 Days #90 tablet 06/19/18 [Rx] Enoxaparin [Lovenox] 100 mg SQ Q12HR 06/20/18 [History] Methylphenidate HCl [Ritalin] 5 mg PO 0800,1200 06/20/18 [History] Ondansetron HCl 4 mg PO Q8H PRN 06/20/18 [History] Oxycodone HCl [Roxybond] 5 mg PO Q8H PRN 06/20/18 [History] Prochlorperazine Maleate [Compazine] 10 mg PO Q8HR PRN 06/20/18 [History] Tizanidine HCl [Zanaflex] 2 mg PO Q8H PRN 06/20/18 [History] hydrOXYzine HCl [Hydroxyzine HCl] 50 mg PO TID PRN 06/20/18 [History] levETIRAcetam [Roweepra] 2,000 mg PO BID 30 Days #30 tablet 06/21/18 [Rx] Allergy/AdvReac Type Severity Reaction Status Date / Time adhesive tape Allergy Rash Verified 06/20/18 19:02 atorvastatin [From Lipitor] AdvReac Cramping Verified 06/20/18 19:02 of the Muscles ROS unobtainable: due to mental status Palliative Care-Exam - Constitutional Vitals: Temp Pulse Resp BP Pulse Ox 98.0 F 60 16 144/81 97 06/21/18 11:17 06/21/18 11:17 06/21/18 11:17 06/21/18 11:17 06/21/18 11:17 General appearance: Present: no acute distress - Head Head Exam: Present: normal inspection, normocephalic - Respiratory Respiratory exam: Present: CTAB - Cardiovascular Cardiovascular exam: Present: +S1, +S2 - GI/Abdominal Exam GI/Abdominal exam: Present: normal bowel sounds, soft - Extremities Exam Extremities exam: Present: normal capillary refill, normal inspection - Neurological Exam Neurological exam: Present: alert Additional comments: Right sided weakness noted. Patient with difficult expressing some words/phrases. - Skin Skin exam: Present: dry, pallor, warm Internal Medicine - CN: Reslt - Labs CBC & Chem 7: 06/21/18 05:17 06/21/18 05:17 Labs: Short CBC 06/21/18 Range/Units 05:17 WBC 6.4 (4.3-11.1) K/mcL Hgb 13.0 (11.5-15.4) g/dL Hct 40.3 (35.3-44.9) % Plt Count 248 (140-400) K/mcL Neutrophils # 3.1 (1.6-8.9) K/mcL BMP 06/21/18 05:17 Sodium 138 Potassium 3.7 Chloride 104 Carbon Dioxide 24 BUN 12 Creatinine 0.71 Glucose 106 H Calcium 8.8 Consult Discharge Plan - Plan Referrals: Jaime Corral MD [Primary Care Provider] - (Patient will be here over weekend. Stil unsure of care of plan at this time) Prescriptions: levETIRAcetam [Roweepra] 2,000 mg PO BID 30 Days #30 tablet Palliative Quality Palliative Quality: Screen for Code Status: Yes, Screen for Goals of Care: Yes, Screen for Pain: Yes, If Pain Regimen Started, Initiate Bowel Regimen: NA, Screen for Nausea/Vomitting: Yes Code Status: 06/20/18 16:56 CODE [Resuscitation Status: Active] [RES] Routine Comment: Per discussion with Resuscitation Status: DNR-Comfort Care-Arrest 06/21/18 13:39 DNR [Resuscitation Status: Active] [RES] Routine Comment: Resuscitation Status: [id number] Palliative Scale - Palliative Performance Scale How ambulatory is this patient?: Reduced What is patient's level of activity and evidence of disease?: Unable normal job/work, Significant disease How much self-care assistance does patient require?: Occasional assistance necessary How much oral intake does the patient have?: Normal or reduced What is this patient's level of consciousness?: Full or confusion Palliative Performance Score: 60 %
--- NOTE | 2018-06-21 14:16 | Discharge Summary ---
- NOTES TO OUTPATIENT PROVIDER Notes to Outpatient Provider: Follow-up with neurology at [facility] Date of Encounter: 06/21/18 Time of Encounter: 14:13 - Discharge Diagnosis (1) Focal seizure Priority: Primary Status: Acute (2) Glioblastoma Priority: Secondary Status: Chronic (3) Pulmonary embolism Priority: Secondary Status: Chronic Qualifiers: Pulmonary embolism type: unspecified Chronicity: chronic Acute cor pulmonale presence: without acute cor pulmonale Qualified Code(s): I27.82 - Chronic pulmonary embolism (4) Hyperlipidemia Priority: Secondary Status: Chronic Qualifiers: Hyperlipidemia type: unspecified Qualified Code(s): E78.5 - Hyperlipidemia, unspecified (5) Hypertension Priority: Secondary Status: Chronic Qualifiers: Hypertension type: unspecified Qualified Code(s): I10 - Essential (primary) hypertension Hospital course: Ms. 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 followed by postictal state. Patient mental status slowly returned to her baseline. Neurology was consulted and recommended to increase Keppra to 2000mg/PO BID and to follow up with her neurologist at [facility]. Patient is hemodynamically stable to be discharged. - Time Spent with Patient Total time spent providing and/or coordinating discharge services: Greater than 30 minutes (40) - Discharge Medications Prescriptions: levETIRAcetam [Roweepra] 2,000 mg PO BID 30 Days #30 tablet Home Medications: Atenolol [Tenormin] 25 mg PO DAILY 08/03/17 [History] Omeprazole [PriLOSEC] 20 mg PO BID #60 cap 10/16/17 [Rx] Lisinopril [Zestril] 10 mg PO DAILY 02/04/18 [History] Citalopram [CeleXA] 20 mg PO DAILY 04/12/18 [History] L. Acidophilus/Pectin, [place] [Acidophilus Capsule] 1 each PO TID 06/01/18 [History] Dexamethasone [Decadron] 4 mg PO DAILY #30 tab 06/07/18 [Rx] ALPRAZolam [Xanax 0.5 MG Tablet] 0.5 mg PO TID PRN 30 Days #90 tablet 06/19/18 [Rx] Enoxaparin [Lovenox] 100 mg SQ Q12HR 06/20/18 [History] Methylphenidate HCl [Ritalin] 5 mg PO 0800,1200 06/20/18 [History] Ondansetron HCl 4 mg PO Q8H PRN 06/20/18 [History] Oxycodone HCl [Roxybond] 5 mg PO Q8H PRN 06/20/18 [History] Prochlorperazine Maleate [Compazine] 10 mg PO Q8HR PRN 06/20/18 [History] Tizanidine HCl [Zanaflex] 2 mg PO Q8H PRN 06/20/18 [History] hydrOXYzine HCl [Hydroxyzine HCl] 50 mg PO TID PRN 06/20/18 [History] levETIRAcetam [Roweepra] 2,000 mg PO BID 30 Days #30 tablet 06/21/18 [Rx] Allergies/Adverse Reactions: Allergy/AdvReac Type Severity Reaction Status Date / Time adhesive tape Allergy Rash Verified 06/20/18 19:02 atorvastatin [From Lipitor] AdvReac Cramping Verified 06/20/18 19:02 of the Muscles Date of admission: 06/20/18 16:07 Primary care physician: Jaime Corral MD Consults: 06/20/18 15:16 Consult to Neurology [CONS] Stat Consulting Provider: [facility] Reason for Consult: Seizures Time Notified: 15:17 Call Completed: Yes 06/20/18 17:09 Consult to Pastoral Services [CONS] Routine Comment: Consult to Vice President [employer] [CONS] Routine Reason for SW Consult: poss hh needs 06/21/18 12:09 Consult to Palliative Care [CONS] Routine Comment: Consulting Provider: Palliative Care [facility] Reason for Consult: gliobastoma Call Completed: Yes 06/21/18 14:11 OT [Consult to Occupational Therapy] [CONS] Routine Comment: Evaluate, develop and implement POC Reason for Consult: weakness Does patient have active BEDREST order?: No Is patient medically & hemodynamically stable?: Yes PT [Consult to Physical Therapy] [CONS] Routine Comment: Evaluate, develop and implement POC Reason for Consult: weakness Does patient have active BEDREST order?: No Is patient medically & hemodynamically stable?: Yes - Constitutional Vitals: Temp Pulse Resp BP Pulse Ox 98.0 F 60 16 144/81 97 06/21/18 11:17 06/21/18 11:17 06/21/18 11:17 06/21/18 11:17 06/21/18 11:17 General appearance: Present: morbidly obese Exam: Vitals: Reviewed. General: Awake, not verbal at baseline, but following commands. no on visual distress Skin: Normal color, no rash, no lesions. HEENT: EOM, pupils equal, round and reactive. Cardiovascular: RRR, normal S1 & S2, no rubs, murmurs or gallops. No JVD. Pulse regular. Lungs: CTA b/l, no wheezes or crackles. Abdomen: Obese, soft, non-tender, no rigidity. Extremities: No deformity, no edema or tenderness, no joint swelling or clubbing. Neurological: CN II-XII intact Rest of the physical exam is non contributory - Patient Status Disposition: Home Health Service Condition: Serious Functional capacity at discharge: wheelchair bound Overall status at discharge: patient is back to baseline - Discharge Instructions Follow Up With: Jaime Corral MD [Primary Care Provider] - (Patient will be here over weekend. Stil unsure of care of plan at this time) Forms: ED Satisfaction Letter - Diet and Activity Activity: as per physical therapy Diet: low salt diet - VTE Reasons for not Prescribing Prophylaxis: Not indicated-Anticoagulated or INR therapeutic
--- NOTE | 2018-06-21 14:49 | Physician Discharge Referral ---
Home Health/Hosp Referral Info Transfer to: Home Health - Diagnosis (1) Focal seizure Priority: Primary Status: Acute (2) Glioblastoma Priority: Secondary Status: Chronic (3) Pulmonary embolism Priority: Secondary Status: Chronic (4) Hyperlipidemia Priority: Secondary Status: Chronic (5) Hypertension Priority: Secondary Status: Chronic - Respiratory Orders None Smoking Cessation: Smoking cessation has been advised. For more information, call the [place] Tobacco Quit Line at 4-576-OILO-NOW. - Diet/Nutrition Diet/Nutrition Orders: Regular - Activity Activity Orders: Chair - Services Needed Following services are medically necessary services: Nursing, Home Health Aide, Physical Therapy, Occupational Therapy - Transfer Medications Prescriptions: levETIRAcetam [Roweepra] 2,000 mg PO BID 30 Days #30 tablet Home Medications: Atenolol [Tenormin] 25 mg PO DAILY 08/03/17 [History] Omeprazole [PriLOSEC] 20 mg PO BID #60 cap 10/16/17 [Rx] Lisinopril [Zestril] 10 mg PO DAILY 02/04/18 [History] Citalopram [CeleXA] 20 mg PO DAILY 04/12/18 [History] L. Acidophilus/Pectin, [place] [Acidophilus Capsule] 1 each PO TID 06/01/18 [History] Dexamethasone [Decadron] 4 mg PO DAILY #30 tab 06/07/18 [Rx] ALPRAZolam [Xanax 0.5 MG Tablet] 0.5 mg PO TID PRN 30 Days #90 tablet 06/19/18 [Rx] Enoxaparin [Lovenox] 100 mg SQ Q12HR 06/20/18 [History] Methylphenidate HCl [Ritalin] 5 mg PO 0800,1200 06/20/18 [History] Ondansetron HCl 4 mg PO Q8H PRN 06/20/18 [History] Oxycodone HCl [Roxybond] 5 mg PO Q8H PRN 06/20/18 [History] Prochlorperazine Maleate [Compazine] 10 mg PO Q8HR PRN 06/20/18 [History] Tizanidine HCl [Zanaflex] 2 mg PO Q8H PRN 06/20/18 [History] hydrOXYzine HCl [Hydroxyzine HCl] 50 mg PO TID PRN 06/20/18 [History] levETIRAcetam [Roweepra] 2,000 mg PO BID 30 Days #30 tablet 06/21/18 [Rx] Allergies/Adverse Reactions: Allergy/AdvReac Type Severity Reaction Status Date / Time adhesive tape Allergy Rash Verified 06/20/18 19:02 atorvastatin [From Lipitor] AdvReac Cramping Verified 06/20/18 19:02 of the Muscles Certification: Further, I certify that my clinical findings support that this patient is homebound (i.e. absences from home require considerable and taxing effort and are for medical reasons or hindu services or infrequently or short duration when for other reasons) because: Homebound Reason: Patient requires assistance of a person or device to safely leave home Attestation: My signature below is to certify that this patient is under my care and that I, or nurse practitioner, or a physician's food and nutrition services assistant working with me, has a [id number] encounter with this patient.
--- NOTE | 2018-06-21 15:30 | EEG/EMG/Oth Biometrics Report ---
EEG Procedure Report EEG Procedure: Routine EEG Procedure Note: Routine 21-channel digital EEG was obtained to rule out any seizure activity or focal abnormalities. FINDINGS: Background rhythm during awake stage shows poorly organized, low voltage delta activity in the posterior and anterior regions, intermixed with theta activity Few non specific [id number] discharges noted without any lateralizing abnormalities are seen, dominantly in the left frontal temporal leads at the same time there is some slowing noted in the left temporal area as compared to the right EMG artifacts and tremor artifacts are noted. Photic stimulation did not produce any abnormalities. Stage II sleep was not observed. IMPRESSION: This is study demonstrated few nonspecific sharp or spike and wave predominantly in the left hemisphere as well as slowing in the left hemispheric leads likely related to patient's known history of craniotomy, clinical correlation with imaging studies are recommended
[2018-06-21 15:37] VITALS: BP 145/85
== END 2018-06-21 17:15 | disposition home health service (06) ==
LOC: EMEROOARM 09:45 → 2ANU 09:45
PROVIDERS: ADMIT Internal Medicine; ATTEND Internal Medicine